=== PATIENT | male | born 1995 | race Caucasian/White ===

== ENCOUNTER 2018-09-19 08:38 | Emergency (ER) | payer OTHER ==
[~2018-09-19] VITALS: Ht 172.7 cm; Wt 65.8 kg
[2018-09-19] MEDS ORDERED: IBUPROFEN 800800 MG PO (09:46)
[2018-09-19 09:55] VITALS: BP 122/70
== END 2018-09-19 09:57 | disposition home or self-care (01) ==
LOC: M.ERS 08:38
DX: S93.492A Sprain of other ligament of left ankle, initial encounter (principal); X50.3XXA Overexertion from repetitive movements, initial encounter; Y93.89 Activity, other specified; Y92.89 Other specified places as the place of occurrence of the external cause; Y99.8 Other external cause status

== ENCOUNTER 2018-11-02 08:16 | Emergency (ER) | payer OTHER ==
[~2018-11-02] VITALS: Ht 172.7 cm; Wt 65.8 kg
[~2018-11-02 08:16] MED LIST: IBUPROFEN 800800 MG PO
[2018-11-02] MEDS ORDERED: TRIAMCINOLONE A80 G2 TOP (08:35)
[2018-11-02] MEDS ORDERED: PREDNISONE 20 M20 M1 PO (08:35)
[2018-11-02 08:40] VITALS: BP 124/80
== END 2018-11-02 08:47 | disposition home or self-care (01) ==
LOC: M.ERS 08:16
DX: L25.9 Unspecified contact dermatitis, unspecified cause (principal); F17.200 Nicotine dependence, unspecified, uncomplicated